=== PATIENT | male | born 1970 | race Two or more races ===

== ENCOUNTER 2025-05-11 15:04 | Emergency (ER) | payer OTHER ==
[~2025-05-11] VITALS: Ht 170.2 cm; Wt 73.9 kg
[2025-05-11 15:57] LABS: PLATELET COUNT (AUTO) 226 K/uL (150-450); RED BLOOD CELL COUNT(AUTO) 4.99 MIL/uL (4.5-6.0); RED CELL DISTRIBUTION WIDTH 12.8 % (11.5-15.0); WHITE BLOOD COUNT (AUTO) 6.6 K/uL (4.3-11.0)
[2025-05-11] MEDS: IV NS 0.9% 1,000 ML BAG IV ONE (15:59)
[2025-05-11 16:05] LABS: CALCIUM, SERUM 9.0 mg/dL (8.5-10.1); CREATININE 0.9 mg/dL (0.6-1.3); SODIUM SERUM 146 mmol/L (136-145); UREA NITROGEN, BLOOD 14 mg/dL (7-18)
[2025-05-11 16:11] LABS: ASPARTATE AMINOTRANSFERASE 10 U/L (15-37); INR 1.05 (0.91-1.10); TOTAL PROTEIN, SERUM 7.5 g/dL (6.4-8.2)
[2025-05-11 17:28] VITALS: BP 119/69; TEMP 98; O2SAT 99
== END 2025-05-11 17:35 | disposition home or self-care (01) ==
LOC: ER 15:08
DX: I95.9 Hypotension, unspecified (principal); H53.8 Other visual disturbances; R55 Syncope and collapse; E11.9 Type 2 diabetes mellitus without complications
CPT/HCPCS: 99285; 96360; 70450; 71045; 93005; 85025; 80048; 80076; 36415; 84484; 85730; 82962; J7030